=== PATIENT | female | born 1960 | race Caucasian/White ===

== ENCOUNTER 2020-05-28 01:31 | Outpatient (CLI) | payer OTHER, SELFPAY ==
[2020-05-29 03:00] LABS: SARS-CoV-2 RNA PCR Negative
== END 2020-05-28 01:32 | disposition home or self-care (01) ==
LOC: ANHCOVIDDT 01:32
PROVIDERS: PCP Family Medicine; Visit Provider Internal Medicine Gastroenterology
DX: Z01.812 Encounter for preprocedural laboratory examination (principal); Z20.828 Contact with and (suspected) exposure to other viral communicable diseases
CPT/HCPCS: 87635; C9803; U0003

== ENCOUNTER 2020-05-30 01:23 | Day surgery (SDC) | payer OTHER, SELFPAY ==
[2020-05-26 15:26] VITALS: BMI 32.0
[2020-05-30 11:04] VITALS: BP 147/95; PULSE 111; RESP 18; TEMP 36.1; O2SAT 97; BMI 33.7
[2020-05-30] MEDS: LACTATED RINGERS 1,000 ML 150 ML IV CONT (11:16)
--- NOTE | 2020-05-30 11:18 | P.PNAN_ITS ---
Anes - Initial Pre Proc Eval Procedure: Operation Date: 05/30/20 12:30 Proposed Procedures p Screening Colonoscopy - Akash Reeves MD Date/Time: 05/30/20 11:18 Surgeon: Akash Reeves MD Pre Op Diagnosis: neoplasm screening Patient Data Age: 59 Gender: F Height: 5 ft 2 in Weight: 83.7 kg Last Vital Signs Temp 36.1 C L 05/30/20 11:04 Pulse 111 H 05/30/20 11:04 Resp 18 05/30/20 11:04 BP 147/95 H 05/30/20 11:04 Pulse Ox 97 05/30/20 11:04 Allergies Allergy/AdvReac Type Severity Reaction Status Date / Time codeine Allergy Mild Cough Verified 05/30/20 11:03 Penicillins Allergy Unknown Unknown Verified 05/30/20 11:03 Home Medications Medication Instructions Recorded Confirmed Type omeprazole 40 mg capsule,delayed See Rx Instructions .ROUTE 03/06/20 05/26/20 Rx release .COMPLEX #90 cap fluticasone 500 mcg-salmeterol 50 See Rx Instructions .ROUTE 04/04/20 05/26/20 Rx mcg/dose blistr powdr for .COMPLEX #60 each inhalation citalopram 20 mg tablet 20 mg PO DAILY #90 tablet 04/08/20 05/26/20 Rx montelukast 10 mg tablet 10 mg PO DAILY #90 tablet 04/08/20 05/26/20 Rx albuterol sulfate See Rx Instructions .ROUTE 05/26/20 05/26/20 History .COMPLEX PRN pseudoephedrine sulfate 60 mg PO Q4-6H PRN 05/26/20 05/26/20 History Patient hx anesthesia problems: none Family hx anesthesia problems: none [facility] Past Medical History Medical History (Updated 05/30/20 @ 11:21 by Syed Obando MD) COPD (chronic obstructive pulmonary disease) Multiple sclerosis Obesity Surgical History Surgical History (Updated 05/30/20 @ 11:22 by Syed Obando MD) H/O: hysterectomy Family History Family History Father Hypertension Family history of malignant neoplasm Grandparent Malignant neoplasm of prostate Mother Family history of diabetes mellitus in first degree relative Other Family history of lung cancer Family history of malignant neoplasm of brain Social History Social History Smoking packs per day: 3 Smoking cigarettes per day: 60.0 Years smoked: 35 Smoking pack-years: 105.00 Smoking status: Former smoker Tobacco type: cigarettes Second hand tobacco smoke exposure: Yes Smoking end date: 05/01/19 Alcohol intake: current Drinks per week: 3 Substance use: current Substance use type: marijuana Last use: 3 WEEKS Living arrangements: with family Spiritual care concerns: No Anes - Eval Final PreProcedure Day of Procedure 05/30/20 11:18 Patient weight: obese Heart: regular rate and rhythm Lungs: clear to auscultation Airway: Mallampati scale class II Neurological: alert and oriented Last oral intake: >/= 8 hours ASA classification: III Emergent: no Anesthetic plan: proceed Anesthesia type and monitoring: general GIVS and standard monitoring Informed Consent: The patient's anesthetic plan and its attendant risks and benefits were discussed with the patient/family/POA. Questions were solicited and answers provided to the satisfaction of the patient/family/POA.
--- NOTE | 2020-05-30 11:44 | PM.HPGS ---
History of Present Illness History of Present Illness Consent: Risks, benefits, and alternatives have been discussed and questions answered. Patient agrees to proceed with procedure. Chief complaint: neoplasm screening Narrative: Sandy Kerr is a 59 year old female here for first colonoscopy, father had colon cancer Review of Systems Constitutional: Constitutional: Denies headache(s) and Denies weakness Eyes: Eyes: Denies blurry vision ENT: Reports Normal hearing present, Denies headache(s) and Denies neck pain Cardiovascular: Cardiovascular: Denies chest pain and Denies dyspnea Respiratory: Respiratory: Denies dyspnea Gastrointestinal: Gastrointestinal: Reports no additional gastrointestinal complaints Genitourinary: Genitourinary: Denies dysuria Musculoskeletal: Musculoskeletal: Denies neck pain Integumentary/Breasts: Skin/Breast: Denies dry skin Neurologic: Reports Normal hearing present, Denies headache(s) and Denies weakness Psychiatric: Psychiatric: Denies anxiety Endocrine: Endocrine: Denies change in body appearance Hematologic/Lymphatic: Hematologic/Lymphatic: Denies easy bleeding Allergic/Immunologic: Allergic/Immunologic: Denies urticaria PMFSH Past Medical History Medical History (Updated 05/30/20 @ 11:45 by Akash Reeves MD) COPD (chronic obstructive pulmonary disease) Family history of colon cancer in father Multiple sclerosis Obesity Surgical History Surgical History (Updated 05/30/20 @ 11:22 by Syed Obando MD) H/O: hysterectomy Family History Family History Father Hypertension Family history of malignant neoplasm Grandparent Malignant neoplasm of prostate Mother Family history of diabetes mellitus in first degree relative Other Family history of lung cancer Family history of malignant neoplasm of brain Social History Social History Smoking packs per day: 3 Smoking cigarettes per day: 60.0 Years smoked: 35 Smoking pack-years: 105.00 Smoking status: Former smoker Tobacco type: cigarettes Second hand tobacco smoke exposure: Yes Smoking end date: 05/01/19 Alcohol intake: current Drinks per week: 3 Substance use: current Substance use type: marijuana Last use: 3 WEEKS Living arrangements: with family Spiritual care concerns: No Meds Home Medications and Allergies Home Medications Medication Instructions Recorded Confirmed Type omeprazole 40 mg capsule,delayed See Rx Instructions .ROUTE 03/06/20 05/26/20 Rx release .COMPLEX #90 cap fluticasone 500 mcg-salmeterol 50 See Rx Instructions .ROUTE 04/04/20 05/26/20 Rx mcg/dose blistr almasdr for .COMPLEX #60 each inhalation citalopram 20 mg tablet 20 mg PO DAILY #90 tablet 04/08/20 05/26/20 Rx montelukast 10 mg tablet 10 mg PO DAILY #90 tablet 04/08/20 05/26/20 Rx albuterol sulfate See Rx Instructions .ROUTE 05/26/20 05/26/20 History .COMPLEX PRN pseudoephedrine sulfate 60 mg PO Q4-6H PRN 05/26/20 05/26/20 History Allergies Allergy/AdvReac Type Severity Reaction Status Date / Time codeine Allergy Mild Cough Verified 05/30/20 11:03 Penicillins Allergy Unknown Unknown Verified 05/30/20 11:03 Vital Signs Vital Signs - 24 hr 05/30/20 11:04 Temperature 97 F L Pulse Rate 111 H Respiratory Rate 18 Blood Pressure 147/95 H Pulse Oximetry 97 Exam Const: General: comfortable and no acute distress HENMT: General nose exam: Normal nares present Eyes: General: appearance normal, both eyes and all related structures Neck: Neck: no JVD Resp: Auscultation: clear to auscultation bilaterally Cardio: Rate: regular rate Rhythm: regular rhythm GI: Inspection: non-distended GI Palp: Yes Soft to palpation Skin: General skin exam: normal color Neuro: General: gait normal Speech: normal speech Extrem: General: normal
[2020-05-30 12:21] VITALS: BP 103/67; PULSE 83; RESP 19; O2SAT 98
[2020-05-30 12:31] VITALS: BP 129/62; PULSE 81; RESP 18; O2SAT 97
[2020-05-30 12:41] VITALS: BP 142/84; PULSE 99; RESP 20; O2SAT 100
== END 2020-05-30 12:49 | disposition home or self-care (01) ==
PROVIDERS: PCP Family Medicine; Visit Provider Internal Medicine Gastroenterology
PROC: 0DJD8ZZ Inspection of Lower Intestinal Tract, Via Natural or Artificial Opening Endoscopic (ICD-10-PCS; CPT 45378; principal; 2020-05-30 12:30)
DX: Z12.11 Encounter for screening for malignant neoplasm of colon (principal); D12.0 Benign neoplasm of cecum; D12.2 Benign neoplasm of ascending colon; D12.3 Benign neoplasm of transverse colon; K57.30 Diverticulosis of large intestine without perforation or abscess without bleeding; E66.9 Obesity, unspecified; J44.9 Chronic obstructive pulmonary disease, unspecified; G35 Multiple sclerosis; Z80.0 Family history of malignant neoplasm of digestive organs; Z87.891 Personal history of nicotine dependence
CPT/HCPCS: 45385; 88305; J2704; J7120